=== PATIENT | female | born 1995 | race Caucasian/White ===

== ENCOUNTER 2018-10-23 14:31 | Emergency (ER) | payer OTHER ==
[~2018-10-23] VITALS: Ht 154.9 cm; Wt 60.0 kg
[2018-10-23 14:38] VITALS: BP 124/64
[2018-10-23 15:48] LABS: BASOPHILS % (AUTO) 0.1 % (0.0-2.0); EOSINOPHILS # (AUTO) 0.1 K/uL (0-0.4); EOSINOPHILS % (AUTO) 1.1 % (0.0-4.0); HEMATOCRIT 44.2 % (36-48); HEMOGLOBIN 14.8 g/dL (12.0-16.0); LYMPHOCYTES # (AUTO) 1.1 K/uL (2.5-16.5); LYMPHOCYTES % (AUTO) 15.8 % (20.5-51.1); MEAN CORPUSCULAR HEMOGLOBIN 30 pg (27-31); MEAN CORPUSCULAR HGB CONC 34 g/dL (33-37); MEAN CORPUSCULAR VOLUME 89.3 fL (80-94); MONOCYTES # (AUTO) 0.5 K/uL (0.8-1.0); MONOCYTES % (AUTO) 7.4 % (1.7-9.3); NEUTROPHILS # (AUTO) 5.5 K/uL (1.8-7.7); NEUTROPHILS % (AUTO) 75.6 % (42.2-75.2); PLATELET COUNT (AUTO) 274 K/uL (140-450); RED BLOOD CELL COUNT(AUTO) 4.95 MIL/uL (4.20-5.40); RED CELL DISTRIBUTION WIDTH 12.8 % (11.6-13.7); WHITE BLOOD COUNT (AUTO) 7.2 K/uL (4.8-10.8)
[2018-10-23 16:21] LABS: ANION GAP 17.9 (8-16); CARBON DIOXIDE 25.6 mmol/L (21-32); POTASSIUM 3.5 mmol/L (3.5-5.1)
[2018-10-23 16:22] LABS: CREATININE 0.8 mg/dL (0.6-1.3)
[2018-10-23] MEDS ORDERED: KETOROLAC 60 MG/2 ML VIAL IM ONE (16:35)
[2018-10-23 16:59] VITALS: BP 118/60
== END 2018-10-23 16:59 | disposition home or self-care (01) ==
LOC: MED 14:31
DX: R10.13 Epigastric pain (principal); R19.7 Diarrhea, unspecified
CPT/HCPCS: 36415; 80048; 81002; 81025; 85025; 96372; 99283; J1885

== ENCOUNTER 2020-02-23 23:40 | Emergency (ER) | payer OTHER ==
[~2020-02-23] VITALS: Ht 162.6 cm; Wt 67.1 kg
[2020-02-23 23:59] VITALS: BP 123/67
--- NOTE | 2020-02-24 00:02 | NUR ---
Dr. Wiggins examining patient.
--- NOTE | 2020-02-24 00:08 | NUR ---
See complete assesment
[2020-02-24 00:29] LABS: BASOPHILS % (AUTO) 0.4 % (0.0-2.0); EOSINOPHILS # (AUTO) 0.2 K/uL (0-0.4); EOSINOPHILS % (AUTO) 1.4 % (0.0-4.0); HEMATOCRIT 43.3 % (36-48); HEMOGLOBIN 14.5 g/dL (12.0-16.0); LYMPHOCYTES # (AUTO) 1.9 K/uL (2.5-16.5); LYMPHOCYTES % (AUTO) 17.8 % (20.5-51.1); MEAN CORPUSCULAR HEMOGLOBIN 30 pg (27-31); MEAN CORPUSCULAR HGB CONC 33 g/dL (33-37); MEAN CORPUSCULAR VOLUME 88.4 fL (80-94); MONOCYTES # (AUTO) 0.6 K/uL (0.8-1.0); MONOCYTES % (AUTO) 5.4 % (1.7-9.3); NEUTROPHILS # (AUTO) 8.1 K/uL (1.8-7.7); PLATELET COUNT (AUTO) 308 K/uL (140-450); WHITE BLOOD COUNT (AUTO) 10.7 K/uL (4.8-10.8)
[2020-02-24 01:00] LABS: ALBUMIN 3.9 g/dL (3.4-5.0); ANION GAP 12.3 (8-16); CARBON DIOXIDE 26.4 mmol/L (21-32); CREATININE 0.9 mg/dL (0.6-1.3); POTASSIUM 3.7 mmol/L (3.5-5.1); TOTAL BILIRUBIN 0.2 mg/dL (0.0-1.0)
[2020-02-24] MEDS ORDERED: FAMOTIDINE 20 MG TAB PO ONE (01:45)
[2020-02-24] MEDS ORDERED: ALUMINUM HYD/MAG/SIMETHICONE 30 ML UDC PO ONE (01:45)
[2020-02-24] MEDS ORDERED: ACETAMINOPHEN 325 MG TAB PO ONE (01:45)
--- NOTE | 2020-02-24 02:50 | NUR ---
Patient discharged with v/s stable. Written and verbal after care instructions given and explained. Patient alert, oriented and verbalized understanding of instructions. Ambulatory with steady gait. All questions addressed prior to discharge. ID band removed. Patient advised to follow up with PMD. Rx of pepcid and zofran given. Patient educated on indication of medication including possible reaction and side effects. Opportunity to ask questions provided and answered.
== END 2020-02-24 02:50 | disposition home or self-care (01) ==
LOC: MED 23:40
DX: K80.70 Calculus of gallbladder and bile duct without cholecystitis without obstruction (principal); R05 Cough; F17.290 Nicotine dependence, other tobacco product, uncomplicated
CPT/HCPCS: 36415; 71045; 76705; 80053; 81002; 81025; 83690; 85025; 99284; 99285

== ENCOUNTER 2021-12-24 01:54 | Emergency (ER) | payer OTHER ==
[~2021-12-24] VITALS: Ht 154.9 cm; Wt 69.9 kg
[2021-12-24 02:02] VITALS: BP 113/81
--- NOTE | 2021-12-24 02:05 | NUR ---
TO LOBBY A/W BED AMBULATORY
--- NOTE | 2021-12-24 03:23 | NUR ---
PT TO BED 12
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
--- NOTE | 2021-12-24 03:54 | NUR ---
HAROON OLIVEIRA AT BEDSIDE.
--- NOTE | 2021-12-24 04:21 | NUR ---
PT BACK FROM RAD VIA W/C
[2021-12-24] MEDS ORDERED: CYCL-711 PO (05:01)
[2021-12-24 05:10] VITALS: BP 90/56
--- NOTE | 2021-12-24 05:10 | NUR ---
Patient discharged with v/s stable. Written and verbal after care instructions given and explained. Patient alert, oriented and verbalized understanding of instructions. Ambulatory with steady gait. All questions addressed prior to discharge. ID band removed. Patient advised to follow up with PMD. Rx of FLEXERIL given. Patient educated on indication of medication including possible reaction and side effects. Opportunity to ask questions provided and answered.
== END 2021-12-24 05:10 | disposition home or self-care (01) ==
LOC: MED 01:54
DX: S16.1XXA Strain of muscle, fascia and tendon at neck level, initial encounter (principal); Z79.899 Other long term (current) drug therapy; V89.2XXA Person injured in unspecified motor-vehicle accident, traffic, initial encounter; Y93.89 Activity, other specified; Y92.89 Other specified places as the place of occurrence of the external cause; Y99.8 Other external cause status
CPT/HCPCS: 72040; 99283